=== PATIENT | male | born 1995 | race Caucasian/White ===

== ENCOUNTER 2024-02-20 09:24 | Emergency (ER) | payer BC, SELFPAY ==
[2024-02-20 09:25] VITALS: BP 133/93
--- NOTE | 2024-02-20 09:36 | ED.GENMED ---
History of Present Illness
General
Chief Complaint: Male Genito-Urinary Symptoms
Source: patient
Exam Limitations: none
Time Seen by Provider: 02/20/24 09:30
History of Present Illness
History of Present Illness:
See MDM
Past History
Past History
ED Past Medical History: Other (Trauma)
ED Past Surgical History: Other (Splenectomy)
Social History
Tobacco: Non-smoker
Alcohol: None
Drug: None
Personal: Single
Living: with family
Phy Exam
Physical Exam
Physical Exam:
See MDM
Course
Orders/Labs/Results
Orders:
Orders
02/20/24 09:25
US Scrotum Urgent
Comment:
Reason For Exam: Right testicular pain
02/20/24 09:33
Urinalysis Reflex To Culture Urgent
Date Specimen was Collected: 02/20/24
Time Specimen was Collected: 09:28
02/20/24 09:36
Ketorolac [Toradol] 30 mg IM NOW STA
Vital Signs
Initial and Last Documented VS:
Initial Vital Signs
Temp Pulse Resp BP Pulse Ox
98.0 F 73 18 133/93 98
02/20/24 09:25 02/20/24 09:25 02/20/24 09:25 02/20/24 09:25 02/20/24 09:25
Last Documented Vital Signs
Temp Pulse Resp BP Pulse Ox
98.0 F 73 18 133/93 98
02/20/24 09:25 02/20/24 09:25 02/20/24 09:25 02/20/24 09:25 02/20/24 09:25
MDM/Problems Addressed
Differential Diagnosis Includes:
HPI and MDM Narrative:
29-year-old male presenting with right testicular pain. It was vague pain yesterday but he noticed it worse today. He denies any rash or discharge or pain with urinating. I asked whether or not he possibly strained his groin. Patient states
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 Regardless, will obtain urinalysis and ultrasound
Physical exam
General: Well appearing and non-toxic
HEENT: protecting airway
Neck: appears supple
CV: No evidence of cyanosis
Resp: No accessory muscle use
Abd: Non-distended
: No rash or discharge noted. Mild tenderness to palpation of right epididymis. No testicular swelling or pain. No palpable hernia
Extremities: No deformities
Neuro: alert
Psych: Normal affect
Skin: Intact
Problems Addressed including Acute and Chronic Conditions affecting care:
1. Groin pain
Acuity: acute
Prognosis: stable
Details: Potentially epididymitis. Will obtain ultrasound
Updates
Ultrasound and urine negative. Discussed likely groin strain. Patient feels comfortable going home
Differential Diagnosis (but not limited to): Epididymitis, groin pain
Testing considered: STD testing
Drug therapy (if applicable): OTC meds, please see d/c instruction regarding Rx drugs
Amount and/or Complexity of Data Reviewed
Clinical info obtained from: Patient
External data reviewed: N/A
Labs I independently reviewed (but not limited to): Urinalysis negative
Radiology: Ultrasound report reviewed
Pulse Ox: not hypoxic
EKG independently reviewed: N/A
Lining Mechanic: N/A
Critical Care: N/A
Risk of Complication:
Social Determinants of health: Good social support
Discussed with other providers: N/A
Escalation of Care includes Admit/Obs: After being observed in the Emergency Department, pt stable for discharge.
Occasional wrong word or 'sound a like' substitutions may have occurred due to the inherent limitations of voice recognition software. Read the chart carefully and recognize, using context, where substitutions have occurred.
*Critical Care Note
Total Time (30-74mins, 75-104mins- exclusive of procedures): Not Applicable
ED Attending Note
-
Portions of this chart may have been created with voice recognition software.� Occasional wrong word or��sound alike� substitutions may have occurred due to the inherent limitations of voice recognition software.
Discharge Plan
Departure
Patient Disposition: Home (Routine Discharge)
Date of Disposition: 02/20/24
Time of Disposition: 11:03
Patient with high blood pressure during this ER visit?: No
Discharge Problem:
Groin strain
Prescriptions:
No Action
pantoprazole 40 MG tablet,delayed release (DR/EC)
40 mg PO DAILY
Referrals:
Bria Muñoz PA-C [Family Provider] -
Activity Restrictions/Additional Instructions:
Please return for any worsening symptoms.
You may return at any time if you have further concerns.
Please follow up with your doctor at the first available appointment, preferably this week.
Thank you for choosing [facility].
Discharge Date and Time
Print Language: [id number]
[2024-02-20] MEDS: TORADOL 30 MG IM (09:42)
[2024-02-20 10:07] LABS: Urine Albumin Negative (Neg - Trace); Urine Bilirubin Negative (Negative); Urine Character Clear (Clear); Urine Color Yellow; Urine Glucose Negative (Negative); Urine Ketone Negative (Negative); Urine Leukocyte Negative (Negative); Urine Nitrite Negative (Negative); Urine Occult Blood Negative (Negative); Urine Urobilinogen Negative (Neg - 1+)
== END 2024-02-20 11:15 | disposition home or self-care (01) ==
LOC: EMR 09:24
PROVIDERS: EMERGENCY PHYSICIAN Student in an Organized Health Care Education/Training Program; FAMILY PHYSICIAN Physician Assistant Medical
DX: S39.011A Strain of muscle, fascia and tendon of abdomen, initial encounter (principal); X58.XXXA Exposure to other specified factors, initial encounter; N50.811 Right testicular pain; Z90.81 Acquired absence of spleen
CPT/HCPCS: 99284; 96372; 76870; 81003; 93976